=== PATIENT | female | born 1980 | race Hispanic/Latino ===

== ENCOUNTER 2024-02-24 08:20 | Day surgery (SDC) | payer MEDICAID ==
[~2024-02-24] VITALS: Ht 165.1 cm; Wt 75.7 kg
[2024-02-24] VITALS (14 sets, daily range): BP systolic 113–142; BP diastolic 63–92; PULSE 80–91; RESP 14–18; TEMP 97.8–98.4
[2024-02-24] MEDS ORDERED: PRED10TA23 PO (09:26)
[2024-02-24] MEDS ORDERED: CYAN-106 PO (09:26)
[2024-02-24] MEDS ORDERED: INDOMETHACIN 100 MG SUPP.RECT RC ONE (09:30)
[2024-02-24] MEDS ORDERED: FENTanyl CITRate PF 50 MCG/1 ML 2ML VIAL ONE (11:07)
[2024-02-24] MEDS ORDERED: proPOFol 10 MG/ML 20ML VIAL IV ONE (11:07)
[2024-02-24] MEDS ORDERED: LIDOCAINE PF 100MG/5ML (2%) SYRINGE 5ML ONE (11:09)
[2024-02-24] MEDS ORDERED: IOHEXOL-350 50ML VIAL IV ONE (11:50)
--- NOTE | 2024-02-24 13:08 | NUR ---
FULL AND COMPLETE DISCHARGE INSTRUCTIONS GIVEN BOTH VERBALLY AND IN WRITING TO PATIENT AND FAMILY. ALL QUESTIONS ANSWERED. PIV REMOVED WITH CATHETER TIP INTACT. DENIES CURRENT PAIN OR NAUSEA. VOICED UNDERSTANDING TO GI INSTRUCTIONS AND FOLLOW UP. W/C TO POV WITH FAMILY TO HOME VU to Full liquid diet today. Minimal self help in transfers. Encouraged and reinforced safety and prevention of falls. Placed safely in car with assist.
--- NOTE | 2024-02-24 14:18 | HMCIMG ---
ERCP BILI/PANC DUCT REASON: CALCULUS OF BILE DUCT WITHOUT CHOLANGITIS OR CHOLECYSTITIS WITHOUT OBSTRUCT COMPARISON: None TECHNIQUE: 14 spot views were obtained. These document ERCP procedure. Fluoroscopy time was 1 minute 45 seconds. IMPRESSION: 1. Documentation of ERCP procedure.
== END 2024-02-24 13:05 | disposition home or self-care (01) ==
LOC: ENDO 08:20
PROVIDERS: ATTEND Internal Medicine Gastroenterology
DX: K80.50 Calculus of bile duct without cholangitis or cholecystitis without obstruction (principal); Z90.49 Acquired absence of other specified parts of digestive tract; Z98.890 Other specified postprocedural states
CPT/HCPCS: 43264; 43275; 74328; J3010; J2003; J2704; Q9967; A4215; A4657; A7002; C1769; 43273; 74330; J3490